=== PATIENT | female | born 1995 | race Hispanic/Latino ===

== ENCOUNTER 2017-03-19 21:47 | Emergency (ER) | payer SELFPAY ==
[2017-03-19 22:09] VITALS: BP 124/85; PULSE 102; RESP 16; TEMP 98.2; O2SAT 100
--- NOTE | 2017-03-19 22:21 | ED PDOC ---
HPI: Wound Care - HPI Time Seen by Provider: 03/19/17 22:12 Chief Complaint (Nursing): Wound Check Chief Complaint (Provider): possible wound infection History Per: Patient Additional Complaint(s): 22-year-old female with no past medical history presents to the emergency department for evaluation of open wound to left posterior ankle sustained last week when she was shaving. Patient has noticed increased redness and purulent discharge from the affected area in past 2 days. She has slight pain as well. Patient denies fever or chills. Tetanus is up-to-date. Past Medical History Reviewed: Historical Data, Nursing Documentation, Vital Signs Vital Signs: Last Vital Signs Temp 98.2 F 03/19/17 22:06 Pulse 102 H 03/19/17 22:06 Resp 16 03/19/17 22:06 BP 124/85 03/19/17 22:06 Pulse Ox 100 03/19/17 22:06 - Medical History PMH: No Chronic Diseases - Surgical History Surgical History: Hernia Repair - Family History Family History: States: No Known Family Hx - Living Arrangements Living Arrangements: With Family - Social History Current smoker - smoking cessation education provided: No Alcohol: Social Drugs: Denies - Immunization History Hx Tetanus Toxoid Vaccination: Yes - Home Medications Home Medications: Ambulatory Orders Medication Instructions Recorded Sulfamethoxazole/Trimethoprim 1 tab PO BID #14 tab 03/19/17 [Bactrim DS 800 mg-160 mg] - Allergies Allergies/Adverse Reactions: Allergies Allergy/AdvReac Type Severity Reaction Status Date / Time No Known Allergies Allergy Verified 03/19/17 22:09 Review of Systems ROS Statement: Except As Marked, All Systems Reviewed And Found Negative Constitutional: Negative for: Fever, Chills Skin: Positive for: Other (wound to posterior left ankle) Physical Exam - Reviewed Nursing Documentation Reviewed: Yes Vital Signs Reviewed: Yes - Physical Exam Skin: Negative for: Rash Eye Exam: Positive for: Normal appearance Extremity: Positive for: Other (Superficial wound infection noted to the left posterior ankle, dried purulent discharge noted, localized erythema with no erythematous streaking, mildly tender to palpation, normal distal sensation) Neurologic/Psych: Positive for: Alert, Oriented - Laboratory Results Urine POC: Negative (declined by patient, she is certain she is not ) - ECG O2 Sat by Pulse Oximetry: 100 Pulse Ox Interpretation: Normal Medical Decision Making Medical Decision Makin22 year old with wound infection Patient given initial dose of Bactrim in the ED along with a prescription for same. Advised NSAIDs for pain relief, wound care instructions provided, advised wound recheck in 2-3 days or return to ED any time if acutely worse. Disposition - Clinical Impression Clinical Impression: Wound infection - Patient ED Disposition Is Patient to be Admitted: No Counseled Patient/Family Regarding: Diagnosis, Need For Followup, Rx Given - Disposition Referrals: [facility] [Provider Group] Disposition: Routine/Home Disposition Time: 22:51 Condition: STABLE Additional Instructions: Wash wound daily with soap and water, apply bacitracin once per day only. Take prescription meds as directed. [id number] Tylenol or Advil for pain as needed. Have him reevaluated in 2-3 days, return to ED any time if worse. Prescriptions: Sulfamethoxazole/Trimethoprim [Bactrim DS 800 mg-160 mg] 1 tab PO BID #14 tab Instructions: Wound Infection (ED) Forms: [employer] (Yi)
[2017-03-19] MEDS ORDERED: Tmp-Smz 800 mg-160 mg DS Tab PO STA (22:49)
[2017-03-19] MEDS ORDERED: Tmp-Smz 800 mg-160 mg DS Tab ONE (22:57)
== END 2017-03-19 23:18 | disposition home or self-care (01) ==
LOC: H.ER 21:47
DX: Z48.00 Encounter for change or removal of nonsurgical wound dressing (principal)